=== PATIENT | male | born 1985 | race Caucasian/White ===

== ENCOUNTER 2020-02-10 07:33 | Emergency (ER) | payer MEDICAID, SELFPAY ==
[2020-02-10 07:43] VITALS: BP 135/89; PULSE 68; RESP 16; TEMP 36.6; O2SAT 100
[2020-02-10 07:51] VITALS: RESP 15
--- NOTE | 2020-02-10 08:11 | ED.GENADUL_ITS ---
Discharge Plan Disposition Patient Disposition: HOME Condition: Good Discharge Details Chief Complaint: SOB Clinical Impression: Cough, Bronchitis Primary Care Provider: None,None ED Provider: Darrell Li Home Meds and New Rx's Prescriptions: No Action aripiprazole [Abilify] 2 mg Tablet 2 mg DAILY RF: 0 Discharge Instructions Instructions: Acute Bronchitis (ED) Additional Instructions: At this time your chest x-ray shows no evidence of pneumonia. We are pending your flu and coronavirus testing which will be done on an outpatient basis. The appointment is at 930 at the tent outside. This was the earliest appointment we could get. Your strep and mono test are both negative. I suspect that you have a viral infection, I feel that coronavirus is unlikely but it would be prudent to test with your current symptoms. I do recommend cutting down on smoking as much as possible. Please continue to take your albuterol inhaler, 2 puffs every 4-6 hours for the next 2 to 3 days to maintain good respiratory function and air movement. Take Tylenol, 1000 mg every 6 hours as needed for fever or chills. Drink plenty of fluids and get plenty of rest. Would recomm end continuing to socially isolate yourself. If you notice any worsening of your symptoms, or any new symptoms such as vomiting, diarrhea, fever, chills, shortness of breath, chest pain, numbness, weakness, or fainting , please return immediately to the emergency department for reevaluation. Please follow up with your primary care provider as soon as possible for reassessment and reevaluation. As always, it was a pleasure participating in your medical care today. Medical Decision Making This is a 34-year-old male with a past medical history of asthma, Crohn's disease, tobacco abuse who presents today for evaluation of cough, fever, shortness of breath for the last week. The patient denies any recent foreign travel or contact with recent immigrants, Travelers, or peoples of [place] or [facility]. The patient denies any recent travel to high risk countries or high risk areas in the [place], or other areas of noted or significant coronavirus infection. He states that he has been self isolating at home for the past 2 months. He does use his albuterol inhalers and this does slightly help his symptoms. He denies taking any NSAIDs currently. He continues to smoke. His significant other has no other symptoms similar to him. He denies any other sick contacts. He denies any nausea, vomiting, chest pain, hemoptysis, productive cough, neck pain, severe headache, numbness, tingling, weakness, or other complaints. Physical exam demonstrates unremarkable vital signs, no tachypnea, hypoxemia, respiratory distress or fever. Oxygen saturation is 100%. He does demonstrate minimal to mild wheezes on the right. These are improved with his home albuterol inhalers. No other abnormalities on exam, no signs of respiratory distress or any indication whatsoever of current respiratory compromise. With the notable erythema in the posterior oropharynx, and the longevity of his symptoms we will get strep and mono testing. Co ronavirus is on the differential but unlikely. Flu is also certainly on the differential. We will schedule the patient for outpatient testing of this. We will get a portable chest x-ray to rule out pneumonia which I also feels unlikely. 8:43 AM The patient's strep and mono testing is negative. Chest x-ray is negative for acute process per radiology. Signs and symptoms consistent with mild bronchitis and inconsistent with meningitis, bacterial pneumonia, or acute respiratory distress requiring additional management. Recommend Tylenol, plenty of fluids, plenty of rest. All of this was discussed with the patient on initial assessment. We did give the patient the option of [id number] secondary discussion after results versus indirect discussion of results and the patient chose indirect. All this was conveyed clearly to the patient. We did set up outpatient evaluation at the coronavirus tent for flu and COVID swabbing. We will place the patient on the list for PCP follow-up. Discussed red flags which to return. I have extensively reviewed the treatment plan and discharge instructions with the patient. I have addressed all patient concerns at this time. The patient was made aware of what symptoms to monitor for that would warrant a return to the emergency department. Discussed the plan with the patient, they demonstrate verbal understanding and agreement with our assessment and plan at this time. HPI General Date/Time Provider Initiated Documentation: 02/10/20 07:47 . HPI Narrative: This is a 34-year-old male with a past medical history of asthma, Crohn's disease, tobacco abuse who presents today for evaluation of cough, fever, shortness of breath for the last week. The patient denies any recent foreign travel or contact with recent immigrants, Travelers, or peoples of [place] or [facility]. The patient denies any recent travel to high risk countries or high risk areas in the [place], or other areas of noted or significant coronavirus infection. He states that he has been self isolating at home for the past 2 months. He does use his albuterol inhalers and this does slightly help his symptoms. He denies taking any NSAIDs currently. He continues to smoke. His significant other has no other symptoms similar to him. He denies any other sick contacts. He denies any nausea, vomiting, chest pain, hemoptysis, productive cough, neck pain, severe headache, numbness, tingling, weakness, or other complaints. Related Data Home Medications Medication Instructions Recorded Confirmed aripiprazole [Abilify] 2 mg DAILY 02/10/20 02/10/20 Allergies Allergy/AdvReac Type Severity Reaction Status Date / Time Penicillins Allergy Severe Unverified 02/10/20 07:47 General Stated Complaint: SOB JODY: 3 Review of Systems All systems reviewed & are unremarkable except as noted in HPI and below PFSH Social History Smoking/Tobacco Use Status: Current every day Tobacco Type: cigarettes Alcohol Intake: current Alcohol Intake frequency: holidays/special occasions only Drug use: Daily Substance use type: marijuana Do you feel safe at home: Yes Do you feel safe in your relationship?: Yes Exam Narrative Exam Narrative: 1.Const: Well-nourished, Well-developed, appearing stated age 2.Eyes: PERRL, no conjunctival injection, and symmetrical lids. 3.ENT: Atraumatic external nose and ears. Moist MM. Neck: Symmetric, trachea midline, No thyromegaly. Minimal erythema in the posterior oropharynx, no tons illar exudate, no tonsillar enlargement. Patient demonstrates good movement of cervical neck. There is no nuchal rigidity, no nuchal tenderness. Patient is able to flex the neck without any difficulty or significant pain. Negative Kernig's and Brudzinski sign. 4.CVS: +S1/S2, No murmurs or gallops. Peripheral pulses 2+ and equal in all extremities. Brisk capillary refill in all extremities. 5.RESP: Unlabored respiratory effort. No evidence of respiratory distress whatsoever. Patient able to speak normally, no reduced sentence length secondary to shortness of breath. No conversational dyspnea. Breath sounds demonstrate mild wheezes on the right, no significant crackles, no rhonchi. 6.GI: Soft, Nontender/Nondistended, No hepatosplenomegaly. No guarding or rebound. No splenomegaly 7.MSK: Normocephalic/Atraumatic, Extremities w/o deformity or ttp No cyanosis or clubbing, Normal movement of all extremities 8.Skin: Warm, Dry. No rashes or lesions. 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 Sensation grossly intact, no focal neurologic deficits. 10.Psych: (AAO) x3. Appropriate mood and affect Course Vital Signs Vital signs: Vital Signs Temperature 36.6 C 02/10/20 07:43 Pulse 68 02/10/20 07:43 Respiratory Rate 16 02/10/20 07:43 Blood Pressure 135/89 02/10/20 07:43 Pulse Oximetry 100 02/10/20 07:43 Temperature 36.6 C 02/10/20 07:43 Temperature Source Oral 02/10/20 07:43 Pulse 68 02/10/20 07:43 Respiratory Rate 15 02/10/20 07:51 Respiratory Effort Non-Labored 02/10/20 07:51 Respiratory Depth Normal 02/10/20 07:51 Respiratory Pattern Normal 02/10/20 07:51 Blood Pressure 135/89 02/10/20 07:43 Blood Pressure Position Sitting 02/10/20 07:43 Pulse Oximetry 100 02/10/20 07:43 Oxygen Delivery Method Room Air 02/10/20 07:43 Oxygen Flow Rate 0 02/10/20 07:43 Pain Level 7 02/10/20 07:43
[2020-02-10 08:27] LABS: Mono Screening Negative (Negative)
--- NOTE | 2020-02-10 08:40 | DI.RAD_ITS ---
EXAM: XR PORTABLE CHEST AP CLINICAL HISTORY: cough, SOB, r/o pneumonia TECHNIQUE: 2D digital imaging was performed. COMPARISON: No exams were available for comparison FINDINGS: The cardiac and mediastinal contours have a normal appearance. The lungs are clear. No infiltrate, effusion or pulmonary edema is seen. There is no evidence of pneumothorax. The bones are grossly u nremarkable. IMPRESSION: Negative chest x-ray.
--- NOTE | 2020-02-10 08:47 | NUR.NOTE ---
patient referred to [facility], In need of PCP within the next few weeks. Nursing Note:
[2020-02-10 09:05] VITALS: BP 130/72; PULSE 68; RESP 16; TEMP 36.5; O2SAT 99
== END 2020-02-10 08:52 | disposition home or self-care (01) ==
PROVIDERS: Emergency Provider Student in an Organized Health Care Education/Training Program
DX: J40 Bronchitis, not specified as acute or chronic (principal)
CPT/HCPCS: 36415; 87449; 87880; 99284; U0003; 71045; 86308; 87081

== ENCOUNTER 2020-03-12 09:45 | Emergency (ER) | payer MEDICAID, SELFPAY ==
--- NOTE | 2020-03-12 09:51 | ED.GENADUL_ITS ---
Discharge Plan Disposition Patient Disposition: HOME Condition: Good Discharge Details Chief Complaint: Orthopedic Clinical Impression: Ankle sprain Primary Care Provider: Carlo Gabriel ED Provider: Azra Dominguez Home Meds and New Rx's Prescriptions: Continued clindamycin HCl 300 mg Capsule 300 mg PO BID RF: 0 olanzapine 10 mg Tablet 10 mg PO DAILY RF: 0 bupropion HCl [Wellbutrin SR] 100 mg Tablet Sustained-Release 12 Hr 150 mg PO TID RF: 0 Discharge Instructions Instructions: Ankle Sprain (ED) Additional Instructions: Encourage rest, ice, elevation. May continue with Tylenol and/or ibuprofen as needed for discomfort. Please continue with the brace for the next [address] ease follow-up with primary care if pain persist after that time. If you develop new or worsening symptoms please seek care urgently once again. Discharge Data Discharge Date/Time-TO BE ENTERED AT DEPARTURE: 03/12/20 10:20 Medical Decision Making Patient is a pleasant 34-year-old gentleman presented with chief complaint of left ankle pain. He reports that yesterday he fell when he missed the last step. Since that time, he has been endorsing ankle discomfort. He indicates the medial and lateral aspects of the ankle is area of discomfort. States that he has had multiple ankle sprains. No previous fractures. No previous surgeries. He denies other injury at the time of the incident. Denies any numbness or tingling. Has been elevating and using Tylenol and ibuprofen to help with discomfort. He states that the pain is only when he bears weight. On exam, On exam, patient is resting comfortably. There is no pain over fibular head or neck. Normal calf exam. 2+ distal pulses, sensation is intact. He has no pain over the proximal fifth metatarsal, no pain about the calcaneus or the remaining foot. Is tenderness to palpation over the medial lateral malleoli with pain maximal over the ATFL. Plan for imaging to evaluate for potential fracture. Will have the patient ice and elevate FINDINGS: Bones/joints: medial and lateral malleoli are normal. ankle mortise is symmetrical. No fracture. hind foot is unremarkable. Tibiotalar joint and the subtalar joint appears normal. Tiny 2 mm calcification distal to the most distal aspect of the fibula possibly a tiny avulsion fragment. This may be old as appears corticated. Correlate regarding tenderness. Soft tissues: Moderate soft tissue swelling laterally. Moderate soft tissue swelling adjacent to the lateral malleolus. IMPRESSION: 1. No fracture 2. Tiny 2 mm calcification distal to the most distal aspect of the fibula possibly a tiny avulsion fragment. This may be old as appears corticated. Correlate regarding tenderness. 3. Moderate soft tissue swelling adjacent to the lateral malleolus. Discussed these findings with the patient. I reviewed the film and reexamined. This small avulsion is consistent with old fx. Discussed iwth patient who states this is very possible. Patient is seen at [facility]. He will contact them for follow-up appointment in 2 weeks. Encourage rest, ice, elevation. Tylenol and ibuprofen as needed for discomfort. Patient was fitted with a lace up ankle splint. 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 He was given return precautions. We discussed crutches, patient doing well with ambulation. All of his questions and concerns were addressed, he is in agreement with this plan. HPI General Mode of arrival: wheelchair . Date/Time Provider Initiated Documentation: 03/12/20 09:51 . Limitations to Documentation: no limitations . Information obtained by: patient and RN notes reviewed . History of Present Illness 34 year old M presents to the emergency department with the chief complaint of left ankle pain, described as severe, with intensity rated at 8. Quality is described as aching, and is localized to the left and lower extremity. Patient reports no radiation. Patient started experiencing this day(s) (1) and it has been constant. Immobilization improves symptom(s), Movement worsens symptoms . Patient notes no other symptoms.. Patient did receive the following treatments prior to arrival, NSAID and other (tylenol) Related Data Home Medications Medication Instructions Recorded Confirmed bupropion HCl [Wellbutrin SR] 150 mg PO TID 03/12/20 03/12/20 clindamycin HCl 300 mg PO BID 03/12/20 03/12/20 olanzapine 10 mg PO DAILY 03/12/20 03/12/20 Allergies Allergy/AdvReac Type Severity Reaction Status Date / Time Penicillins Allergy Severe Unverified 02/10/20 07:47 acetaminophen [From Vicodin] Allergy Hives Unverified 03/12/20 10:04 codeine Allergy Anaphylaxsi Unverified 03/12/20 10:04 s hydrocodone [From Vicodin] Allergy Hives Unverified 03/12/20 10:04 General JODY: 3 Review of Systems Constitutional Constitutional: Reports as per HPI, Denies chills, Denies fever(s), Denies headache(s) and Denies weakness ENT Ears, Nose, Mouth, and Throat: Denies headache(s) Cardiovascular Cardiovascular: Reports as per HPI Respiratory Respiratory: Reports as per HPI and Denies cough Musculoskeletal Musculoskeletal: Reports as per HPI and Denies tingling Integumentary/Breasts Skin/Breast: Reports as per HPI, Denies rash and Denies wounds Neurologic Neurologic: Reports as per HPI, Denies headache(s), Denies tingling, Denies paresthesias and Denies weakness [facility] Social History Smoking/Tobacco Use Status: Current every day Tobacco Type: cigarettes Alcohol Intake: former Drug use: Daily Substance use type: marijuana Do you feel safe at home: Yes Do you feel safe in your relationship?: Yes Exam Const General: cooperative, healthy appearing, comfortable, no acute distress, well developed and well groomed Nutritional Appearance: average body habitus and well nourished Orientation: alert and awake Resp Effort & Inspection: normal respiratory effort, able to speak in complete sentences and no respiratory distress Cardio Rate: regular rate Rhythm: regular rhythm Skin General skin exam: no rashes or lesions noted Lesions: no lesions Rashes: no rashes Trauma: no lacerations or abrasions Neuro General: patient alert and patient awake Cognition: normal cognition Speech: speech normal Gait: normal gait Motor: muscle tone normal throughout Sensory Exam: no sensory deficits noted Extrem Left lower extremity: normal capillary refill, knee Details: normal to inspection; no tenderness (no pain over fibular head), lower leg Details: normal to inspection and no edema; no tenderness, no localized swelling, no palpable cords, no ecchymosis and no crepitus, ankle Details: tenderness Location: of the lateral malleolus and of the medial malleolus; not of the achilles tendon, swelling Details: laterally and no edema; ROM abnormal, no warmth, no abrasions, no lacerations, no ecchymosis, no crepitus and achilles tendon exam normal and foot Details: normal capillary refill, normal to inspection, toes with normal ROM, vascular exam Details: dorsalis pedis pulse present and normal capillary refill and motor-sensory exam Details: light-touch normal; no tenderness; abnormal ROM (full plantar flexion, limited dorsiflexion) Psych Appearance: grossly normal and well kempt Mental Status: mental status grossly normal Speech and Movement: speech and movement normal
[2020-03-12 09:59] VITALS: BP 120/83; PULSE 68; RESP 18; TEMP 36.4; O2SAT 95
--- NOTE | 2020-03-12 10:00 | DI.RAD_ITS ---
EXAM: XR ANKLE LT COMPLETE CLINICAL HISTORY: pain after inversion injury, swelling laterally TECHNIQUE: 2D digital imaging was performed. COMPARISON: No exams were available for comparison FINDINGS: There is soft tissue swelling greatest around the lateral malleolus. No fracture or ankle mortise w idening is seen. There is a small bony density seen beneath the tip of the lateral malleolus which d oes not appear acute. No talar dome defect is seen. IMPRESSION: Soft tissue swelling. No evidence of fracture.
--- NOTE | 2020-03-12 10:24 | DI.VRAD_ITS ---
PROCEDURE INFORMATION: Exam: XR Left Ankle Exam date and time: 03/12/2020 10:12 AM Age: 34 years old Clinical indication: Pain; Ankle; Left TECHNIQUE: Imaging protocol: XR Left ankle. Views: 3 or more views. COMPARISON: No relevant prior studies available. FINDINGS: Bones/joints: medial and lateral malleoli are normal. ankle mortise is symmetrical. No fracture. hind foot is unremarkable. Tibiotalar joint and the subtalar joint appears normal. Tiny 2 mm calcification distal to the most distal aspect of the fibula possibly a tiny avulsion fragment. This may be old as appears corticated. Correlate regarding tenderness. Soft tissues: Moderate soft tissue swelling laterally. Moderate soft tissue swelling adjacent to the lateral malleolus. IMPRESSION: 1. No fracture 2. Tiny 2 mm calcification distal to the most distal aspect of the fibula possibly a tiny avulsion fragment. This may be old as appears corticated. Correlate regarding tenderness. 3. Moderate soft tissue swelling adjacent to the lateral malleolus. Dictated and Authenticated by: Antonio Aragon MD. Ordering:STEPHANIE Oquendo MD
[2020-03-12 10:49] VITALS: BP 120/83; PULSE 68; RESP 18; TEMP 36.4; O2SAT 95
== END 2020-03-12 10:20 | disposition home or self-care (01) ==
LOC: ER 10:42
PROVIDERS: Emergency Provider Physician Assistant; PCP Family Medicine
DX: S93.492A Sprain of other ligament of left ankle, initial encounter (principal); W10.8XXA Fall (on) (from) other stairs and steps, initial encounter
CPT/HCPCS: 29515; 99283; 73610; L1902